=== PATIENT | female | born 1990 | race African-American/Black ===

== ENCOUNTER 2019-09-21 22:06 | Emergency (ER) | payer OTHER ==
[~2019-09-21] VITALS: Ht 157.5 cm; Wt 113.4 kg
[2019-09-21 22:32] LABS: URINE BILIRUBIN NEGATIVE (Negative); URINE BLOOD NEGATIVE (Negative); URINE CLARITY CLEAR; URINE COLOR YELLOW; URINE GLUCOSE-RANDOM NEGATIVE (Negative); URINE KETONES NEGATIVE (Negative); URINE LEUKOCYTES-REFLEX 1+ (Negative); URINE NITRITE-REFLEX NEGATIVE (Negative); URINE PROTEIN NEGATIVE (Negative); URINE SPECIFIC GRAVITY >= 1.030 (1.005-1.030); URINE UROBILINOGEN 0.2 E.U./dl (0.2-1.0)
[2019-09-21 22:38] LABS: MUCUS 0-3 Light strn/LPF (None Seen); SQUAMOUS >10 Many /LPF (0-3)
[2019-09-21 22:39] LABS: CASTS None Seen /LPF (None Seen)
[2019-09-21 22:40] LABS: CALCIUM OXALATE 0-3 Few /LPF (None Seen); URINE RBC None Seen /HPF (0-2); URINE WBC-REFLEX 6-15 Few /HPF (0-5)
[2019-09-21] MEDS ORDERED: FLAGYL500 M1 PO (23:44)
[2019-09-21 23:56] VITALS: BP 146/83
== END 2019-09-21 23:57 | disposition home or self-care (01) ==
LOC: M.ERS 22:06
PROVIDERS: Personal Emergency Response Attendant
DX: N72 Inflammatory disease of cervix uteri (principal); N76.0 Acute vaginitis; B96.89 Other specified bacterial agents as the cause of diseases classified elsewhere; Z88.5 Allergy status to narcotic agent; Z88.6 Allergy status to analgesic agent